=== PATIENT | male | born 2000 | race Caucasian/White ===

== ENCOUNTER 2020-06-21 12:14 | Emergency (ER) | payer SELFPAY ==
[2020-06-21 12:24] VITALS: BP 130/67; PULSE 99; RESP 18; TEMP 37.1; O2SAT 97; BMI 18.3
--- NOTE | 2020-06-21 12:27 | W.ED.GENADLT ---
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 complaint: Laceration Onset (ago): minute(s) Location: upper extremity Associated symptoms: Deny chest pain, dyspnea, headache(s), nausea, rash or vomiting Review of Systems Const: Denies: fever(s), chills or body aches Eyes: Denies: change in vision or blurry vision ENMT: Denies: throat pain or nasal congestion Card: Denies: chest pain or dyspnea on exertion Resp: Denies: dyspnea, productive cough or non-productive cough GI: Denies: abdominal pain, nausea or vomiting : Denies: difficulty urinating Musc: Denies: extremity pain Skin/Breast: Reports: other (Laceration right hand); Denies: rash Neuro: Denies: headache(s) Psych: Denies: anxiety or depression Atul/Lymph: Denies: easy bruising Physical Exam Const: COMMON NORMALS: no acute distress Extremity: RIGHT UPPER EXTREMITY: Yes hand & digits (Right hand he has a large laceration single layer below the right forefinger at the area below the PIP joint is curved linear good neurovascular status distal of the injury) Coding Level of Care Code 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
[2020-06-21] MEDS: tetanus-dipt-pertussis 0.5 mL SDV IM (12:33)
[2020-06-21] MEDS: lidocaine 1% INJ 20 mL INTRADERMA (12:36)
== END 2020-06-21 13:35 | disposition home or self-care (01) ==
PROVIDERS: Emergency Provider Nurse Practitioner Family
DX: S61.411A Laceration without foreign body of right hand, initial encounter (principal); W27.0XXA Contact with workbench tool, initial encounter; Z23 Encounter for immunization
CPT/HCPCS: 12345; 90471; 90715; 99281; 99282

== ENCOUNTER → 2021-05-22 12:05 | Outpatient (BNVA) | payer BC, SELFPAY | PROVIDERS: Visit Provider Nurse Practitioner Family | DX: R00.0 Tachycardia, unspecified (principal); R62.7 Adult failure to thrive; Z13.6 Encounter for screening for cardiovascular disorders; Z20.822 Contact with and (suspected) exposure to COVID-19; K21.9 Gastro-esophageal reflux disease without esophagitis | CPT/HCPCS: 80053; 80061; 81003; 82306; 83036; 84439; 84443; 84481; 85025; 86140 ==

== ENCOUNTER → 2021-07-18 13:23 | Outpatient (BNVA) | payer OTHER, SELFPAY | PROVIDERS: PCP Nurse Practitioner Family; Visit Provider Registered Nurse | DX: Z02.6 Encounter for examination for insurance purposes (principal); S67.22XA Crushing injury of left hand, initial encounter | CPT/HCPCS: 80307 ==

== ENCOUNTER → 2025-06-29 10:28 | Outpatient (BNVA) | payer BC, SELFPAY | PROVIDERS: PCP Nurse Practitioner Family; Visit Provider Nurse Practitioner Family | DX: K21.9 Gastro-esophageal reflux disease without esophagitis (principal); Z13.6 Encounter for screening for cardiovascular disorders; R00.0 Tachycardia, unspecified; R62.7 Adult failure to thrive | CPT/HCPCS: 80053; 80061; 81003; 82306; 83036; 84439; 84443; 84481; 85025; 85651; 86140 ==